=== PATIENT | male | born 1970 ===

== ENCOUNTER 2020-07-31 09:27 | Day surgery (SDC) | payer BC ==
[~2020-07-31 09:27] MED LIST: Lactated Ringers 1,000 ML IV SCH; Midazolam 1 MG/ML 2 ML SDV ONE; Propofol 200 MG/20 ML SDV ONE
--- NOTE | 2020-07-31 09:58 | PCM.PREANE ---
Preanesthetic Assessment - Anesthesia/Transfusion/Family Hx Anesthesia History: Prior Anesthesia Without Reaction Other Type of Anesthesia Reaction Comment: pt states his sister "almost on the table", related to sister's COPD Family History of Anesthesia Reaction: No Transfusion History: No Prior Transfusion(s) Intubation History: Unknown - Review of Systems General: No Symptoms Pulmonary: No Symptoms Cardiovascular: No Symptoms Gastrointestinal: No Symptoms, Other (screening) Neurological: No Symptoms Other: Reports: None - Physical Assessment Vital Signs: Last Vital Signs Temp 36.5 C 07/31/20 09:33 Pulse 98 07/31/20 09:33 Resp 15 07/31/20 09:33 BP 138/91 H 07/31/20 09:33 Pulse Ox Height: 5 ft 8 in Weight: 102.965 kg ASA Class: 3 Mental Status: Alert & Oriented x3 Airway Class: Mallampati = 2 Dentition: Reports: Partial (upper - removesd) Thyro-Mental Finger Breadths: 3 Mouth Opening Finger Breadths: 2 ROM/Head Extension: Full Lungs: Clear to Auscultation, Normal Respiratory Effort Cardiovascular: Regular Rate, Regular Rhythm - Allergies Allergies/Adverse Reactions: Allergies Allergy/AdvReac Type Severity Reaction Status Date / Time acetaminophen Allergy Nausea and Verified 07/25/20 10:29 Vomiting hydrocodone Allergy Nausea and Verified 07/25/20 10:29 Vomiting Penicillins Allergy Hives Verified 07/25/20 10:29 - Blood Blood Available: No - Anesthesia Plan Pre-Op Medication Ordered: None - Acknowledgements Anesthesia Type Planned: MAC Pt an Appropriate Candidate for the Planned Anesthesia: Yes Alternatives and Risks of Anesthesia Discussed w Pt/Guardian: Yes Pt/Guardian Understands and Agrees with Anesthesia Plan: Yes PreAnesthesia Questionnaire HEENT History: Reports: Hard of Hearing, Other (See Below) Other HEENT History: wears glasses, has upper dental plate Cardiovascular History: Reports: High Cholesterol, Hypertension Respiratory History: Reports: COPD (very mild - no inhalers), Sleep Apnea Other Respiratory History: was told he has COPD- has not had any testing, does not use CPAP Gastrointestinal History: Reports: GERD Other Gastrointestinal History: ulcers Genitourinary History: Reports: Dialysis, Other (See Below) Other Genitourinary History: Pt did 1 round of dialysis in [place] for kidney failure r/t alcoholism. Pt states, "I only had to do 1 round and now my kidney is working fine." Musculoskeletal History: Other Musculoskeletal History: left shoulder pain Neurological History: Reports: None Psychiatric History: Reports: Anxiety, Depression Other Psychiatric History: has been alcohol and drug free for 14 months Endocrine/Metabolic History: Reports: Obesity/BMI 30+ (BMI 34.5) Hematologic History: Reports: None Immunologic History: Reports: None Oncologic (Cancer) History: Reports: None Dermatologic History: Reports: None - Infectious Disease History Infectious Disease History: Reports: Chicken Pox, Measles, Mumps - Past Surgical History Head Surgeries/Procedures: Reports: None Musculoskeletal Surgical History: Reports: Shoulder Surgery Other Musculoskeletal Surgeries/Procedures:: unsure of procedure- ? tendon - SUBSTANCE USE Tobacco Use Status *Q: Current Every Day Tobacco User (1 ppd) Tobacco Use Within Last Twelve Months: Cigarettes Recreational Drug Use History: No - HOME MEDS Home Medications: Home Meds PARoxetine HCl [Paxil] 20 mg PO DAILY 12/05/15 [History] dilTIAZem HCL [Dilt-XR] 120 mg PO DAILY 12/05/15 [History] Ibuprofen 800 mg PO ASDIRECTED PRN 07/25/20 [History] Rosuvastatin Calcium 20 mg PO DAILY 07/25/20 [History] - CURRENT (IN HOUSE) MEDS Current Meds: Current Medications Lactated Ringer's (Ringers, Lactated) 1,000 mls @ 125 mls/hr IV ASDIRECTED STEPHEN Last Admin: 07/31/20 09:45 Dose: 125 mls/hr Documented by: Discontinued Medications Midazolam HCl (Versed 1 Mg/Ml) Confirm Administered Dose 2 mg .ROUTE .STK-MED ONE Stop: 07/31/20 07:36 Propofol (Diprivan 20 Ml) Confirm Administered Dose 600 mg .ROUTE .STK-MED ONE Stop: 07/31/20 07:36
[2020-07-31] MEDS ORDERED: Propofol 200 MG/20 ML SDV ONE (11:40)
--- NOTE | 2020-07-31 12:04 | PCM.OPNOTE ---
- General Post-Op/Procedure Note Date of Surgery/Procedure: 07/31/20 Operative Procedure(s): Colonoscopy with polypectomies Findings: Colon polyps diverticulosis dictation number [id number] Pre Op Diagnosis: screening colonoscopy Post-Op Diagnosis: colon polyps Primary Surgeon: Khoa Tai Pathology: polyps Complications: None Condition: Good
--- NOTE | 2020-07-31 12:19 | PCM.POSTAN ---
POST ANESTHESIA ASSESSMENT - MENTAL STATUS Mental Status: Alert, Oriented - VITAL SIGNS Vital Signs: Last Vital Signs Temp 36.5 C 07/31/20 09:33 Pulse 69 07/31/20 12:12 Resp 16 07/31/20 12:12 BP 110/75 07/31/20 12:12 Pulse Ox 96 07/31/20 12:12 - RESPIRATORY Respiratory Status: Respiratory Rate WNL, Airway Patent, O2 Saturation Stable - CARDIOVASCULAR CV Status: Pulse Rate WNL, Blood Pressure Stable - GASTROINTESTINAL GI Status: No Symptoms - POST OP HYDRATION Hydration Status: Adequate & Stable
[2020-07-31 12:24] VITALS: BP 117/72; PULSE 70
--- NOTE | 2020-07-31 12:34 | PCM48HPAN ---
Post Anesthesia Note - EVALUATION WITHIN 48HRS OF ANESTHETIC Vital Signs in Normal Range: Yes Patient Participated in Evaluation: Yes Respiratory Function Stable: Yes Airway Patent: Yes Cardiovascular Function Stable: Yes Hydration Status Stable: Yes Pain Control Satisfactory: Yes Nausea and Vomiting Control Satisfactory: Yes Mental Status Recovered: Yes Vital Signs: Last Vital Signs Temp 36.2 C 07/31/20 12:16 Pulse 70 07/31/20 12:16 Resp 14 07/31/20 12:16 BP 117/72 07/31/20 12:16 Pulse Ox 96 07/31/20 12:16
--- NOTE | 2020-08-01 07:18 | OR ---
SURGEON: JUANITA KNIGHT MD DATE OF PROCEDURE: 07/31/2020 PREOPERATIVE DIAGNOSIS: Screening colonoscopy. POSTOPERATIVE DIAGNOSIS: Small colon polyps, likely hyperplastic in the cecum, splenic flexure about 50 cm, and rectum. PROCEDURES PERFORMED: 1. Colonoscopy. 2. Cold biopsy polypectomy. ANESTHESIA: Anesthesiologist. EXTENT OF EXAMINATION: Cecum. LIMITATIONS: None. BOWEL PREP: Good. REASON FOR PROCEDURE: The patient is a pleasant 50-year-old gentleman. He has never had a colonoscopy. Denies any blood in his stool. Denies any family history of colon cancer. PROCEDURE IN DETAIL: Physical examination was performed. The major risks and benefits associated with the procedure were explained to the patient in detail. The patient verbalized understanding of the same. The patient was then connected to the appropriate monitoring device and IV started. EKG, pulse, pulse oximetry, blood pressure, and capnography were monitored throughout the procedure. The patient's oxygen and sedation were provided by the anesthesiologist. The patient was placed in left lateral decubitus position and sedation began. After adequate sedation was achieved, digital rectal exam was performed. No rectal masses or polyps were felt. Now, a well-lubricated Olympus colonoscope was entered into the rectum and advanced under direct visualization to the level of the cecum. The cecum was identified by both visual and anatomic landmarks. The patient had some liquid stool in the cecum. This was suctioned and irrigated out for okay-looking mucosa. The patient did have kind of a constant peristalsis and a stream of liquid stool from the ileocecal valve making it slightly more challenging to get liquid stool out, but did manage to get a good look at the mucosa. The patient had a very small polyp right in the cecum. This looked to be potentially hyperplastic. This was removed with cold biopsy polypectomy with completely removed and good hemostasis, scope was withdrawn. The patient did have some liquid stool coming in the ascending colon, this was suctioned and irrigated for a good look at the mucosa. The patient did have a polyp, again more hyperplastic looking at about the splenic flexure about 50 cm, removed with cold biopsy polypectomy, again with the polyp removed in entirety and good hemostasis. Scope was carefully withdrawn. The patient did have some diverticulosis in his sigmoid colon. The patient did have a small polyp right at his rectum just above his rectum. This was removed with cold biopsy polypectomy. Again, good hemostasis. Scope was then retroflexed in the rectum. He did have some noninflamed internal hemorrhoids along with some hyperplastic papula. Scope was then completely removed and the procedure was terminated. ENDOSCOPIC DIAGNOSES: 1. Multiple colon polyps. 2. Diverticulosis. RECOMMENDATIONS: Followup colonoscopy will depend on pathology, but most likely in another 5 years, sooner if he develops signs or symptoms such as change in bowel habits or blood in his stool. ALEXIS / JENNIFER /[id number]
== END 2020-07-31 12:36 | disposition home or self-care (01) ==
LOC: MW.SDS 09:27
PROVIDERS: ATTEND Surgery
DX: Z12.11 Encounter for screening for malignant neoplasm of colon (principal); D12.0 Benign neoplasm of cecum; K62.1 Rectal polyp; K57.30 Diverticulosis of large intestine without perforation or abscess without bleeding; J44.9 Chronic obstructive pulmonary disease, unspecified; I10 Essential (primary) hypertension; E55.9 Vitamin D deficiency, unspecified; E78.5 Hyperlipidemia, unspecified; F17.210 Nicotine dependence, cigarettes, uncomplicated; E66.9 Obesity, unspecified; Z88.5 Allergy status to narcotic agent; Z88.0 Allergy status to penicillin; Z79.899 Other long term (current) drug therapy; Z88.8 Allergy status to other drugs, medicaments and biological substances; Z68.34 Body mass index [BMI] 34.0-34.9, adult
CPT/HCPCS: 45380; 88305; J2250; J2704; J7120; 00812